=== PATIENT | female | born 1935 | race Caucasian/White ===

== ENCOUNTER → 2018-07-10 11:12 | Outpatient (CLI) | payer MEDICARE, SELFPAY ==
--- NOTE | 2018-07-10 11:08 | DI.REPORT_ITS ---
SYMPTOMS/DIAGNOSIS: PAIN RIGHT HAND: Three views were obtained. There is a fracture of the head of the fifth metacarpal with mild impaction of the fracture fragments. Mild volar and radial angulation of the distal fracture fragment noted. Moderate degenerative changes of the IP joints of the hand noted.
== END ==
PROVIDERS: Family Provider Family Medicine; PCP Family Medicine; Visit Provider Orthopaedic Surgery
DX: M79.641 Pain in right hand (principal); S62.336A Displaced fracture of neck of fifth metacarpal bone, right hand, initial encounter for closed fracture; M19.041 Primary osteoarthritis, right hand; W01.0XXA Fall on same level from slipping, tripping and stumbling without subsequent striking against object, initial encounter
CPT/HCPCS: 73130; 99214

== ENCOUNTER 2018-10-15 08:29 | Emergency (ER) | payer MEDICARE, SELFPAY ==
[2018-10-15 08:35] VITALS: BP 141/67; PULSE 91; RESP 18; TEMP 36.9; O2SAT 91
--- NOTE | 2018-10-15 08:52 | DI.RAD_ITS ---
SYMPTOMS/DIAGNOSIS: COUGH, WHEEZING, ? PNEUMONIA PA AND LATERAL CHEST: The heart is not enlarged. There may be a hiatal hernia. There are patchy areas of increased radiodensities in the lung bases, probably predominantly on the left. The findings are suspicious for pneumonia. No pleural effusions seen. CONCLUSION: Findings suspicious for basilar pneumonia, probably left lower lobe.
[2018-10-15 09:03] VITALS: RESP 7
[2018-10-15] MEDS: predniSONE 20 MG TAB 60 MG PO (09:03)
[2018-10-15] MEDS: Albuterol/Ipratropium 3 ML UPD VIAL UPD (09:03)
--- NOTE | 2018-10-15 09:04 | ED.GENADUL_ITS ---
Discharge Plan Disposition Patient Disposition: HOME Condition: Stable Discharge Details Chief Complaint: RespSymp Clinical Impression: Community acquired pneumonia Primary Care Provider: Smita Prajapati ED Provider: Katerin Levin Home Meds and New Rx's Prescriptions: New doxycycline hyclate 100 mg capsule 100 mg PO BID 7 Days Qty: 14 RF: 0 prednisone 50 mg tablet 50 mg PO DAILY 5 Days Qty: 5 RF: 0 albuterol sulfate [Ventolin HFA] 90 mcg/actuation Hfa Aerosol Inhaler 2 puff Inhalation DISPENSE Qty: 1 RF: 0 Continue omeprazole 20 MG capsule,delayed release(DR/EC) 20 mg PO DAILY RF: 0 Discharge Instructions Instructions: Community Acquired Pneumonia (ED) Additional Instructions: Take the antibiotics and steroids until finished. Use the albuterol inhaler as needed and directed for wheezing or shortness of breath. Call your primary care doctor today to schedule follow-up appointment for 2 days. Return immediately to the emergency department any worsening or new concerning symptoms. Discharge Data Discharge Physician: Katerin Levin Medical Decision Making 82-year-old female with no past medical history with cough and chest congestion for 1 week. Positive sick contact with recently diagnosed with pneumonia. O2 sat 91% on room air. Heart rate 91. Afebrile. Normal respiratory rate and blood pressure. Patient appears nontoxic, in speaking full sentences, no respiratory distress. She has scattered wheezing and rhonchi throughout. Differential diagnosis includes acute bronchitis, pneumonia. Doubt ACS as she has no complaints of chest pain or shortness of breath. Due to patient's age, will check an EKG and a chest x-ray. Patient stated initially she had been eating and drinking well, but states she ate less yesterday and would like lab work to rule out dehydration. There are no physical exam signs of dehydration, give DuoNeb and p.o. prednisone. EKG notes a rate of 81, sinus, no acute ST elevation or depression, QTc 436, QRS 98. 1005 --chest x-ray notes pneumonia bilateral bases. Patient feels better after DuoNeb. Repeat oxygen saturation 89%, improved after coughing to 94%. Patient states she feels good to go home. She denies any recent antibiotics or recent hospital admission. Will give another neb treatment to see if this improves further chest congestion and a dose of doxycycline here. 1040 --patient feels better after second neb treatment and is requesting to go home. Oxygen saturation 92% on room air. Prescription for prednisone and doxycycline given as well as albuterol inhaler to go. Patient was instructed to call her primary care doctor for reevaluation in the next 2 days and to return here immediately if worse. HPI General Mode of arrival: ambulatory . Date/Time Provider Initiated Documentation: 10/15/18 08:45 . Limitations to Documentation: no limitations . Information obtained by: patient . HPI Narrative: Patient is an 82-year-old female with no past medical history who presents with cough and chest congestion for the past week. Patient states she would not have come here if not for her and son making her come to be evaluated. She states she has had occasional sputum but mostly the cough has been dry. She denies fever, chest pain, shortness of breath, sore throat, leg pain or swelling, recent travel or recent surgery. She states she has not taken any medication for this. Here in the ED and diagnosed with pneumonia and sent home with antibiotics. She states she has been eating and drinking. Past medical history: None Surgical history: Appendectomy, tubal ligation, tonsillectomy Social history: Denies tobacco, alcohol or drugs Medications: Prilosec Allergies: Penicillin PCP: Dr. Prajapati Related Data Home Medications Medication Instructions Recorded Confirmed albuterol sulfate [Ventolin HFA] 2 puff INHALATION DISPENSE #1 g 10/15/18 doxycycline hyclate 100 mg PO BID 7 Days #14 cap 10/15/18 omeprazole 20 mg PO DAILY 10/15/18 10/15/18 prednisone 50 mg PO DAILY 5 Days #5 tab 10/15/18 Previous Rx's Medication Instructions Recorded albuterol sulfate [Ventolin HFA] 2 puff INHALATION DISPENSE #1 g 10/15/18 doxycycline hyclate 100 mg PO BID 7 Days #14 cap 10/15/18 prednisone 50 mg PO DAILY 5 Days #5 tab 10/15/18 Allergies Allergy/AdvReac Type Severity Reaction Status Date / Time Penicillins Allergy Severe Anaphylaxsi Unverified 10/15/18 08:38 s General Stated Complaint: RespSymp SHAHIDA: 3 Review of Systems Review of Systems All systems reviewed & are unremarkable except as noted in HPI and below Constitutional Reports as per HPI, Denies chills and Denies fever(s) Eyes Denies blurry vision ENT Denies dizziness, Denies sore throat and Denies throat swelling Cardiovascular Denies chest pain and Denies dyspnea Respiratory Reports chest congestion, Reports cough and Denies dyspnea Gastrointestinal Denies abdominal pain, Denies diarrhea and Denies vomiting Genitourinary Denies hematuria and Denies dysuria Musculoskeletal Denies back pain and Denies numbness Integumentary/Breasts Denies lesions and Denies rash Neurologic Denies dizziness and Denies numbness Allergic/Immunologic Denies throat swelling [facility] Family History Mother Diabetes Essential hypertension Father Diabetes CHF (congestive heart failure) Sister Essential hypertension Heart disease Hyperlipidemia Neoplasm Macular degeneration Brother Diabetes Essential hypertension Heart disease Hyperlipidemia Neoplasm Macular degeneration Brother Neoplasm Macular degeneration Brother Diabetes Heart disease Hyperlipidemia Macular degeneration Brother Diabetes Heart disease Cerebrovascular accident Macular degeneration Brother Macular degeneration Grandfather No problems noted. Grandfather No problems noted. Grandmother Diabetes Heart disease Grandmother Heart disease Son No problems noted. Social History Smoking/Tobacco Use Status: Never Surgical History Appendectomy (~1952) Biopsy of breast (~2002) Tonsillectomy (~5) Exam Const General: cooperative and healthy appearing Orientation: alert and awake [facility] Head: normal to inspection Ears: hearing grossly normal bilaterally, external ears normal and TM abnormal dull bilaterally; not bulging, not with effusion and not erythematous General nose exam: external nose normal Face and sinus: normal facial exam Mouth: oral mucosae normal Teeth and gingiva: dentition normal Throat: posterior oropharynx normal Eyes General: appearance normal, both eyes and all related structures Eyelids: eyelids normal EOM: EOM intact bilaterally Neck Neck: normal visual inspection Lymphatic: no lymphadenopathy noted Chest Chest: normal inspection of the chest Resp Effort & Inspection: normal respiratory effort and able to speak in complete sentences Auscultation: rhonchi upper bilaterally and lower bilaterally and wheezes scattered wheezes Cardio Rate: regular rate Rhythm: regular rhythm GI Inspection: normal to inspection Palpation: soft, not firm, no guarding, no hepatosplenomegaly, no masses and nontender Auscultation: normal bowel sounds Skin General skin exam: no rashes or lesions noted Neuro General: alert and awake Cognition: normal cognition Speech: speech normal Gait: normal gait Motor: muscle tone normal throughout Sensory Exam: no sensory deficits noted Extrem General: normal to inspection, full ROM and no edema Psych Appearance: grossly normal Mental Status: mental status grossly normal Speech and Movement: speech and movement normal Affect: normal affect Thought Process: normal Course Vital Signs Temperature 98.4 F 10/15/18 08:35 Pulse 91 H 10/15/18 08:35 Respiratory Rate 18 10/15/18 08:35 Blood Pressure 141/67 H 10/15/18 08:35 Pulse Oximetry 91 L 10/15/18 08:35 Temperature 98.4 F 10/15/18 08:35 Temperature Source Skin 10/15/18 08:35 Pulse 91 H 10/15/18 08:35 Respiratory Rate 18 10/15/18 08:35 Respiratory Effort Accessory Muscle Use 10/15/18 08:44 Respiratory Depth Normal 10/15/18 08:44 Blood Pressure 141/67 H 10/15/18 08:35 Blood Pressure Position Sitting 10/15/18 08:35 Pulse Oximetry 91 L 10/15/18 08:35 Oxygen Delivery Method Room Air 10/15/18 08:35 Oxygen Flow Rate 0 10/15/18 08:35 Pain Level 0 10/15/18 08:35
[2018-10-15 09:26] LABS: Abs Immature Grans 0.03 k/cumm (0.0-0.09); Absolute Basophil Count 0.03 k/cumm (0.0-0.2); Absolute Monocyte Count 1.02 k/cumm (0.11-0.7); Basophils % 0.2; Eosinophils % 0.1; HCT 42.1 % (36.0-46.0); Immature Grans % 0.2; Mean Corp. HGB Concentration 33.3 g/dL (32.0-36.0); Mean Corpuscular Hemoglobin 28.9 pg (27.0-33.0); Mean Corpuscular Volume 86.8 fL (80-95); Mean Platelet Volume 10.6 fL (8.0-11.0); Monocytes % 7.2; Neutrophils % 75.3; Platelet Count 216 x1000/uL (130-400); RBC 4.85 m/cumm (4.00-5.20); RBC Distribution Width 14.6 % (11.7-14.6); White Blood Cell Count 14.21 k/cumm (4.4-10.8)
[2018-10-15 09:27] LABS: Absolute Eosinophil Count 0.01 k/cumm (0.0-0.7); Absolute Lymphocyte Count 2.42 k/cumm (1.2-3.4)
[2018-10-15 09:56] LABS: ALT 21 U/L (12-78); AST 13 U/L (15-37); Albumin 3.4 g/dL (3.4-5.0); Alkaline Phosphatase 64 U/L (46-116); Anion Gap 9.5 mmol/L (3-11); BUN 15 mg/dL (7-18); Bilirubin, Total 1.2 mg/dL (0.2-1.0); CO2 26.5 mmol/L (21.0-32.0); Calcium 8.8 mg/dL (8.5-10.1); Chloride 100 mmol/L (98-107); Estimated GFR 53.35 (mL/min/1.73m2); Glucose 140 mg/dL (70-100); Magnesium 2.1 mg/dL (1.8-2.4); Potassium 3.8 mmol/L (3.5-5.1); Sodium 136 mmol/L (136-145); Total Protein 7.8 g/dL (6.4-8.2)
[2018-10-15 09:58] LABS: Troponin I < 0.02 ng/mL (0.00-0.06)
[2018-10-15 10:15] VITALS: PULSE 92; RESP 20; O2SAT 90
[2018-10-15] MEDS: Doxycycline Hyclate 100 MG CAP PO (10:15)
[2018-10-15] MEDS: Albuterol 2.5 MG/3 ML INH SOLN VIAL UPD (10:15)
[2018-10-15 10:53] VITALS: BP 133/48; PULSE 102; RESP 20; TEMP 36.6; O2SAT 91
[2018-10-15 11:05] VITALS: BP 133/48; PULSE 94; RESP 20; TEMP 36.6; O2SAT 91
== END 2018-10-15 11:05 | disposition home or self-care (01) ==
PROVIDERS: Emergency Provider Physician Assistant; PCP Family Medicine
DX: J18.9 Pneumonia, unspecified organism (principal)
CPT/HCPCS: 36415; 80053; 93005; 94640; 99285; 71046; 83735; 84484; 85025; 93010; J7512; J7613; J7620

== ENCOUNTER 2018-12-17 10:26 | Outpatient (CLI) | payer MEDICARE, SELFPAY ==
--- NOTE | 2018-12-17 14:45 | DI.RAD_ITS ---
SYMPTOMS/DIAGNOSIS: COUGH PA AND LATERAL CHEST: The lungs are free of infiltrates. There is no pleural effusion. There is a moderate-sized retrocardiac hiatus hernia. The heart is not enlarged. The hilar structures, mediastinum and tracheal air column are intact. SUMMARY: No evidence of acute cardiopulmonary disease.
[2018-12-17 15:40] LABS: Abs Immature Grans 0.02 k/cumm (0.0-0.09); Absolute Basophil Count 0.09 k/cumm (0.0-0.2); Absolute Eosinophil Count 0.35 k/cumm (0.0-0.7); Absolute Lymphocyte Count 2.89 k/cumm (1.2-3.4); Absolute Monocyte Count 0.81 k/cumm (0.11-0.7); Absolute Neutrophil Count 5.01 k/cumm (1.2-6.7); Eosinophils % 3.8; HCT 44.5 % (36.0-46.0); Immature Grans % 0.2; Lymphocytes % 31.5; Mean Corp. HGB Concentration 31.5 g/dL (32.0-36.0); Mean Corpuscular Hemoglobin 27.9 pg (27.0-33.0); Mean Corpuscular Volume 88.6 fL (80-95); Mean Platelet Volume 10.7 fL (8.0-11.0); Monocytes % 8.8; Neutrophils % 54.7; Platelet Count 282 x1000/uL (130-400); RBC 5.02 m/cumm (4.00-5.20); RBC Distribution Width 15.4 % (11.7-14.6); White Blood Cell Count 9.17 k/cumm (4.4-10.8)
[2018-12-17 16:47] LABS: ALT 22 U/L (12-78); AST 16 U/L (15-37); Albumin 3.5 g/dL (3.4-5.0); Alkaline Phosphatase 65 U/L (46-116); Anion Gap 6.9 mmol/L (3-11); BUN 11 mg/dL (7-18); Bilirubin, Total 0.4 mg/dL (0.2-1.0); CO2 30.1 mmol/L (21.0-32.0); CREATININE 0.86 mg/dL (0.55-1.02); Calcium 8.9 mg/dL (8.5-10.1); Chloride 101 mmol/L (98-107); Glucose 82 mg/dL (70-100); Potassium 4.1 mmol/L (3.5-5.1); Sodium 138 mmol/L (136-145); Total Protein 8.6 g/dL (6.4-8.2)
== END 2018-12-17 10:46 ==
PROVIDERS: PCP Family Medicine; Visit Provider Internal Medicine
DX: R05 Cough (principal); J18.9 Pneumonia, unspecified organism; Z01.818 Encounter for other preprocedural examination
CPT/HCPCS: 36415; 80053; 71046; 85025

== ENCOUNTER 2019-01-02 07:17 | Day surgery (SDC) | payer MEDICARE, SELFPAY ==
--- NOTE | 2019-01-01 12:56 | POEE_ITS ---
History of Present Illness Chief Complaint: Progressive decreased vision, left eye Narrative: The patient is an 82-year-old lady with history of aggressive decreased vision in both eyes at both distance and near. She feels it has become increasingly worse over the past year. On examination she was noted to have moderately advanced bilateral nuclear cataracts with vision of 20/200 OD, 20/60 OS. The option of cataract surgery was offered to the patient and she wished to proceed with cataract surgery of the left eye, followed by the right eye.. Of note, she also has history of epiretinal membrane of the right eye as well as nonexudative macular degeneration, right eye more than left she understands that postoperative visual acuity will be limited by the pre-existing retinopathy. NOTE: The Chief Complaint, HPI, Past Medical History, Past Surgical History, Family History, Social History, Medications, and complete Ophthalmic Exam with detailed Assessment and Plan have already been documented in the patient's outpatient ophthalmic record and are not covered again in detail here. [facility] Medical History Nuclear sclerotic cataract of left eye (Acute) Surgical History Appendectomy (~1952) Biopsy of breast (~2002) Tonsillectomy (~1945) Social History Smoking and Tabacco status: Never Meds Home Medications Medication Instructions Recorded Confirmed Type omeprazole 20 mg PO DAILY 10/15/18 12/31/18 History Allergies Allergy/AdvReac Type Severity Reaction Status Date / Time Penicillins Allergy Severe Anaphylaxsi Unverified 12/17/18 13:37 s Exam OCULAR EXAM:: Most recent ocular examination reveals visual acuity of 20/200 OD, 20/60 OS. Best corrected vision is 2080 OD, 20/50 OS. Intraocular pressure is 18 OD, 16 OS. Extraocular motility is normal.. Pupils equal, round, and reactive without afferent pupillary defect slit-lamp examination reveals dilating to 6 mm OU. 3+ brunescent nuclear cataracts OU. Dilated funduscopic examination shows disc cupping of 0.2 OD 0.1 OS. There is an epiretinal membrane in the right eye with some horizontal history a in the nasal macula. There is one drusen in the macula. Central pigment clumping with a hypopigmented halo is present centrally. In the left eye there is a small central area of hyperpigmentation. Peripheral retina and vitreous is normal OU. BRIGHTNESS ACUITY TESTING (BAT):: Brightness acuity testing of the left eye off is 20/60. Low is 20/60. Medium is 20/60. High is 20/200. Assessment and Plan (1) Nuclear sclerotic cataract of left eye: Current visit: No Status: Acute Assessment: Visually significant cataract, left eye. Plan: Cataract extraction with intraocular lens implantation, left eye Note: NOTE:: The details of the planned surgery, including the risks, indications,limitations,expectations,outcome and possible complications were explained to the patient. The patient understands the complications including, but not limited to: infection, hemorrhage, posterior dislocation of the lens or nuclear fragments which may require the intervention of a vitreoretinal surgeon, possible loss of the eye, or from anesthetic complications. The patient has been made aware of the option of not having surgery, that vision following surgery may not be equal to that prior to surgery, and that the planned surgery may not achieve the intended results. Following this discussion, which the patient appeared to understand, the patient wishes to proceed with cataract surgery with lens implantation of the affected eye to improve and maximize vision.
[2019-01-02 07:35] VITALS: BP 137/71; PULSE 85; RESP 16; TEMP 36.1; O2SAT 93
[2019-01-02] MEDS: Tetracaine 0.5% 4 ML BTL OS ×2 (07:44→09:10)
[2019-01-02] MEDS: Tropicam./Phenyleph. (1/2.5%) 5 ML BTL OS ×3 (07:47→07:58)
--- NOTE | 2019-01-02 09:06 | W.PM.DSUDISC ---
Discharge Plan Discharge Details Attending Provider: Armando Adler Primary Care Provider: Smita Prajapati Home Meds and New Rx's Prescriptions: No Action omeprazole 20 MG capsule,delayed release(DR/EC) 20 mg PO DAILY RF: 0 Discharge Instructions Stand Alone Forms: Post-op Topical Cataract, Minh Smallwood (DSU) DS: Diagnosis Discharge Diagnosis (1) Status post cataract extraction and insertion of intraocular lens of left eye: Status: Chronic
--- NOTE | 2019-01-02 09:08 | ROE_ITS ---
Date of service: 01/02/19 Time of Service: 09:45 Operative Note PRE-OP DIAGNOSIS: Cataract, left eye POST-OP DIAGNOSIS: same PROCEDURE: Cataract extraction using phacoemulsification with intraocular lens implant, left eye SURGEON: Armando Adler ANESTHESIA: MAC and local (sub-tenon's anesthetic infiltration) PATHOLOGY: none sent COMPLICATIONS: None Patient was transported to: same day Patient's condition: stable Implants: [employer] / [employer] Tecnis ZCB00 Indications: Progressive decreased vision due to cataract, left eye Procedure Description: CATARACT SURGERY OPERATIVE REPORT PREOPERATIVE DIAGNOSIS: Nuclear cataract, left eye POSTOPERATIVE DIAGNOSIS: Same OPERATION: Cataract extraction using phacoemulsification with posterior chamber intraocular lens implant, left eye. IOL: IOL Measuring Machine Tender/Model: [employer] / EBEN Tecnis ZCB00 IOL Power: + 20.0 diopters IOL Serial Number: [id number] Optic Diameter: 6.0mm Haptic/Overall Diameter: 13.0mm PHACO INFO: Andres [employer]urion Vision System with OZil and Active Fluidics Cumulative Dispersed Energy (CDE): 12.70 seconds SURGEON: Armando Adler MD, GENIA ANESTHESIA: Monitored Anesthesia Care (MAC), with local sub-tenon's anesthetic infiltration COMPLICATIONS: None SPECIMENS: None INDICATIONS FOR PROCEDURE: The patient is an 83-year-old lady with history of diminished visual acuity in both eyes secondary to the development of bilateral nuclear cataracts. She is significantly symptomatic that she desires cataract surgery and attempt to improve and maximize her vision. PROCEDURE: The correct surgical eye was identified and marked as the left eye and the pupil was dilated in the preoperative area using mydriatics and cycloplegics. The dilated pupil size was 6.5 mm. Oral sedation was administered in the form of an Imprimis MKO Melt (midazolam 3mg/ketamine 25mg/ondansetron 2mg). The patient was brought to the operating room where cardiopulmonary monitoring was instituted and surgical time-out was performed, confirming the correct operative eye and IOL power. Topical anesthesia was administered and ophthalmic povidone-iodine 5% was instilled into the conjunctival fornices. Lidocaine gel was applied to the cornea and the jarrett-ocular area was prepped with Betadine 10% solution and draped in the usual sterile fashion for intraocular surgery, including an aperture drape. A Tegaderm transparent film dressing was cut in half and used to cover the lashes and lid margins. Care was taken to sequester the lashes and lid margins under the Tegaderm dressing. A lid speculum was placed between the lids of the operative eye and the Сергей-Mary operating microscope was maneuvered into position. Smooth scissors were then used to make a conjunctival buttonhole approximately 6mm posterior to the limbus in the inferonasal quadrant. Blunt dissection was carried out to expose bare sclera, and a blunt-tipped sub-tenon?s anesthesia cannula was introduced and passed posteriorly along the globe where non- preserved plain lidocaine was injected into posterior sub-Tenon?s space. A side port knife was used to make a paracentesis port superior/superiortemporal, and the anterior chamber was filled with Healon GV. A 2.4mm keratome knife was used to create a half-thickness groove at the limbus and then to construct a three- plane near-clear corneal tunnel extending 2.0mm into clear cornea in the temporal position. . A flap was raised on the anterior capsule and capsulorhexis forceps were used to complete a continuous curvilinear capsulorhexis of 4.8 mm. Balanced salt solution was then used to perform cortical cleaving hydrodissection and nuclear hydrodelineation until the lens could be freely rotated within the capsular bag. The lens nucleus was then disassembled and removed within the capsular bag and iris plane using phacoemulsification. Residual cortical material was removed using the 45-degree angled silicone I/A tip with 0.3mm port. The posterior capsule was carefully polished to remove as much residual lens epithelial cells as safely possible. The capsular bag was then inflated and the anterior chamber deepened with viscoelastic. The lens implant described above was inserted into the capsular bag using the EBEN Dongola Injector. A Kuglen hook was used to dial the IOL into position. Residual viscoelastic was then removed first from posterior to the IOL, then from the anterior chamber using the I/A handpiece. The lens implant was noted to center nicely within the capsular bag. The incisions were stromally hydrated, and the anterior chamber was reformed using BSS. Then 0.4cc of moxifloxacin 1.5mg/ml were injected into the capsular bag and anterior chamber. The incisions were checked with a Weck spear and found to be secure. Several drops of ophthalmic povidone-iodine 5% were then applied to the eye followed by two drops of Imprimis combination moxifloxacin/dexamethasone solution. The drapes were removed and a clear plastic protective eye shield was placed over the eye. The patient was then returned to [facility] Day Surgery in stable condition.
[2019-01-02] MEDS: Povidone-Iodine Ophth 30 ML BTL (09:10)
[2019-01-02] MEDS: Lidocaine 2% Jelly 6 ML SYR (09:10)
[2019-01-02] MEDS: Lidocaine 1% Pres-Free 5 ML VIAL (09:15)
[2019-01-02] MEDS: Balanced Salt Soln.-PLUS 500 ML BAG (09:15)
[2019-01-02 10:09] VITALS: BP 120/52; PULSE 69; RESP 16; TEMP 35.8; O2SAT 96
== END 2019-01-02 10:40 | disposition home or self-care (01) ==
LOC: SUR 07:17
PROVIDERS: PCP Family Medicine; Visit Provider Ophthalmology
PROC: (CPT 66984; principal; 2019-01-02 09:30)
DX: H25.12 Age-related nuclear cataract, left eye (principal); K21.9 Gastro-esophageal reflux disease without esophagitis
CPT/HCPCS: 66984; V2632

== ENCOUNTER 2019-01-05 16:00 | Outpatient (CLI) | payer MEDICARE, SELFPAY ==
--- NOTE | 2019-01-05 16:00 | DI.RAD_ITS ---
SYMPTOM/DIAGNOSIS: RLL RALES, PNEUMONIA, J18.9 CHEST X-RAY: Frontal and lateral views. Comparison 12/17/18 Heart size and pulmonary vasculature are within normal limits. No focal infiltrates, effusions or pneumothoraces are identified. There is again seen a retro-cardiac soft tissue density consistent with hiatal hernia. The bones are intact. IMPRESSION: No acute pulmonary process.
== END 2019-01-05 16:20 ==
PROVIDERS: PCP Family Medicine; Visit Provider Family Medicine
DX: R09.89 Other specified symptoms and signs involving the circulatory and respiratory systems (principal); J18.9 Pneumonia, unspecified organism; K44.9 Diaphragmatic hernia without obstruction or gangrene
CPT/HCPCS: 71046

== ENCOUNTER 2019-01-16 08:20 | Day surgery (SDC) | payer MEDICARE, SELFPAY ==
--- NOTE | 2019-01-15 07:31 | W.PIPPEYE ---
History of Present Illness Chief Complaint: Progressive decreased vision, right eye Narrative: The patient is an 82-year-old lady with history of macular degeneration and epiretinal membrane of the right eye. She presented with complaints of progressive decreased vision in both eyes at both distance and near. She was noted to have significant bilateral nuclear cataracts. The option of cataract surgery was offered to the patient and she wished to proceed. She is Ardie undergone cataract surgery in her left eye on 01/02/2019. She now presents for cataract surgery in the right eye. NOTE: The Chief Complaint, HPI, Past Medical History, Past Surgical History, Family History, Social History, Medications, and complete Ophthalmic Exam with detailed Assessment and Plan have already been documented in the patient's outpatient ophthalmic record and are not covered again in detail here. PFSH Medical History Nuclear sclerotic cataract of left eye (Acute) Nuclear sclerotic cataract of left eye (Resolved) Surgical History Status post cataract extraction and insertion of intraocular lens of left eye (Chronic 01/02/19) Appendectomy (~1952) Biopsy of breast (~2002) Tonsillectomy (~1945) Social History Smoking and Tabacco status: Never Meds Home Medications Medication Instructions Recorded Confirmed Type omeprazole 20 mg PO DAILY 10/15/18 01/09/19 History albuterol sulfate HFA 90 1 - 2 puff IH Q4H PRN #8.5 gm 01/05/19 01/09/19 Rx mcg/actuation aerosol inhaler benzonatate 200 mg capsule 200 mg PO TID PRN #30 cap 01/05/19 01/09/19 Rx inhalational spacing device #1 each 01/05/19 01/09/19 Rx levofloxacin 500 mg tablet 500 mg PO DAILY #7 tab 01/05/19 01/09/19 Rx Allergies Allergy/AdvReac Type Severity Reaction Status Date / Time Penicillins Allergy Severe Anaphylaxsi Unverified 01/09/19 08:31 s Exam OCULAR EXAM:: Most recent ocular examination is significant for corrected visual acuity of 20/80 OD, 20/50 OS. Intraocular pressure is 18 OD 15 OS. Pupils equal, round, and reactive without afferent pupillary defect extraocular motility is normal. Slit-lamp examination shows pupils dilating to 6 mm OU. 3+ brunescent nuclear cataract OD. Well-positioned PCIOL OS with clear posterior capsule. Dilated funduscopic examination shows disc cupping of 0.2 OD 0.1 OS with normal vessels. There is an epiretinal membrane in the right macula with central pigment clumping with a hypopigmented halo. There are some macular pigmentary changes in the left eye. Peripheral retina and vitreous is normal. BRIGHTNESS ACUITY TESTING (BAT):: Brightness acuity testing of the right eye off is 20/200. Low is 20/200. Medium is 20/200. High is 20/400. Assessment and Plan (1) Nuclear sclerotic cataract of left eye: Current visit: No Status: Acute (2) Nuclear sclerotic cataract of right eye: Current visit: No Status: Acute Assessment: Visually significant cataract, right eye, resolved Plan: cataract extraction was performed 01/02/19 (this diagnosis DOES NOT delete from problem list in this document) Note: NOTE:: The details of the planned surgery, including the risks, indications,limitations,expectations,outcome and possible complications were explained to the patient. The patient understands the complications including, but not limited to: infection, hemorrhage, posterior dislocation of the lens or nuclear fragments which may require the intervention of a vitreoretinal surgeon, possible loss of the eye, or from anesthetic complications. The patient has been made aware of the option of not having surgery, that vision following surgery may not be equal to that prior to surgery, and that the planned surgery may not achieve the intended results. Following this discussion, which the patient appeared to understand, the patient wishes to proceed with cataract surgery with lens implantation of the affected eye to improve and maximize vision.
[2019-01-16 08:29] VITALS: BP 148/79; PULSE 80; RESP 16; TEMP 36.3; O2SAT 95
[2019-01-16] MEDS: Tetracaine 0.5% 4 ML BTL OD ×4 (08:46→10:21)
[2019-01-16] MEDS: Tropicam./Phenyleph. (1/2.5%) 5 ML BTL OD ×3 (08:46→08:58)
[2019-01-16] MEDS: Lidocaine 2% Jelly 6 ML SYR (10:22)
[2019-01-16] MEDS: Povidone-Iodine Ophth 30 ML BTL (10:22)
[2019-01-16] MEDS: Lidocaine 1% Pres-Free 5 ML VIAL (10:27)
[2019-01-16] MEDS: Balanced Salt Soln.-PLUS 500 ML BAG (10:30)
[2019-01-16] MEDS: Duovisc Viscoelastic System EACH 1 EACH (10:38)
--- NOTE | 2019-01-16 10:48 | W.PM.DSUDISC ---
Discharge Plan Discharge Details Attending Provider: Armando Adler Primary Care Provider: Smita Prajapati Home Meds and New Rx's Prescriptions: No Action benzonatate 200 mg capsule 200 mg PO TID PRN (Reason: cough) Qty: 30 RF: 0 levofloxacin [Levaquin] 500 mg tablet 500 mg PO DAILY Qty: 7 RF: 0 Ventolin HFA 90 mcg/actuation HFA aerosol inhaler 1 - 2 puff IH Q4H PRN (Reason: shortness of breath or wheezing) Qty: 8.5 RF: 0 Aerochamber MV spacer .ROUTE .MEDSUPPLY Qty: 1 RF: 0 omeprazole 20 MG capsule,delayed release(DR/EC) 20 mg PO DAILY RF: 0 Discharge Instructions Stand Alone Forms: Post-op Topical Cataract, Press Ganey (DSU) DS: Diagnosis Discharge Diagnosis (1) Status post cataract extraction and insertion of intraocular lens of right eye: Status: Chronic
--- NOTE | 2019-01-16 10:51 | ROE_ITS ---
Date of service: 01/16/19 Time of Service: 10:49 Operative Note PRE-OP DIAGNOSIS: Cataract, right eye PROCEDURE: Cataract extraction using phacoemulsification with intraocular lens implant, right eye SURGEON: Armando Adler ANESTHESIA: MAC and local (sub-tenon's anesthetic infiltration) ESTIMATED BLOOD LOSS: 0 PATHOLOGY: none sent COMPLICATIONS: None Patient was transported to: same day Patient's condition: stable Implants: [employer] / [employer] Tecnis ZCB00 intraocular lens Indications: Progressive decreased vision due to cataract, right eye Procedure Description: CATARACT SURGERY OPERATIVE REPORT PREOPERATIVE DIAGNOSIS: Nuclear cataract, right eye POSTOPERATIVE DIAGNOSIS: Same OPERATION: Cataract extraction using phacoemulsification with posterior chamber intraocular lens implant, right eye. IOL: IOL Living Coach/Model: [employer] / EBEN Tecnis ZCB00 IOL Power: + 20.50 diopters IOL Serial Number: [id number] Optic Diameter: 6.0mm Haptic/Overall Diameter: 13.0mm PHACO INFO: Andres Showpadurion Vision System with OZil and Active [employer]uidics Cumulative Dispersed Energy (CDE): 7.97 seconds SURGEON: Armando Adler MD, GENIA ANESTHESIA: Monitored Anesthesia Care (MAC), with local sub-tenon's anesthetic infiltration COMPLICATIONS: None SPECIMENS: None INDICATIONS FOR PROCEDURE: The patient is an 83-year-old lady with history of macular degeneration who has developed significant bilateral dense nuclear cataracts. She is Ardie undergone cataract surgery in her left eye and is doing well postoperatively. She now presents for cataract surgery in the right eye. PROCEDURE: The correct surgical eye was identified and marked as the right eye and the pupil was dilated in the preoperative area using mydriatics and cycloplegics. The dilated pupil size was 7.0 mm. Oral sedation was administered in the form of an Imprimis MKO Melt (midazolam 3mg/ketamine 25mg/ondansetron 2mg). The patient was brought to the operating room where cardiopulmonary monitoring was instituted and surgical time-out was performed, confirming the correct operative eye and IOL power. Topical anesthesia was administered and ophthalmic povidone-iodine 5% was instilled into the conjunctival fornices. Lidocaine gel was applied to the cornea and the jarrett-ocular area was prepped with Betadine 10% solution and draped in the usual sterile fashion for intraocular surgery, including an aperture drape. A Tegaderm transparent film dressing was cut in half and used to cover the lashes and lid margins. Care was taken to sequester the lashes and lid margins under the Tegaderm dressing. A lid speculum was placed between the lids of the operative eye and the Сергей-Mary operating microscope was maneuvered into position. Smooth scissors were then used to make a conjunctival buttonhole approximately 6mm posterior to the limbus in the inferonasal quadrant. Blunt dissection was carried out to expose bare sclera, and a blunt-tipped sub-tenon?s anesthesia cannula was introduced and passed posteriorly along the globe where non- preserved plain lidocaine was injected into posterior sub-Tenon?s space. A sideport knife was used to make a paracentesis port inferiortemporally, and the anterior chamber was filled with Viscoat. A 2.4mm keratome knife was used to create a half-thickness groove at the limbus and then to construct a three-plane near-clear corneal tunnel extending 2.0mm into clear cornea in the superiortemporal position. . A flap was raised on the anterior capsule and capsulorhexis forceps were used to complete a continuous curvilinear capsulorhexis of 5.5 mm. Balanced salt solution was then used to perform cortical cleaving hydrodissection and nuclear hydrodelineation until the lens could be freely rotated within the capsular bag. The lens nucleus was then disassembled and removed within the capsular bag and iris plane using phacoemulsification. Re sidual cortical material was removed using the I/A handpiece. The posterior capsule was carefully polished to remove as much residual lens epithelial cells as safely possible. The capsular bag was then inflated and the anterior chamber deepened with Provisc. The lens implant described above was inserted into the capsular bag using the EBEN Hardy Injector. A Kuglen hook was used to dial the IOL into position. Residual viscoelastic was then removed first from posterior to the IOL, then from the anterior chamber using the I/A handpiece. The lens implant was noted to center nicely within the capsular bag. The incisions were stromally hydrated, and the anterior chamber was reformed using BSS. Then 0.4cc of moxifloxacin 1.5mg/ml were injected into the capsular bag and anterior chamber. The incisions were checked with a Weck spear and found to be secure. Several drops of ophthalmic povidone-iodine 5% were then applied to the eye followed by two drops of Imprimis combination moxifloxacin/dexamethasone solution. The drapes were removed and a clear plastic protective eye shield was placed over the eye. The patient was then returned to [facility] in stable condition.
[2019-01-16 11:10] VITALS: BP 105/70; PULSE 82; RESP 16; TEMP 35.7; O2SAT 96
== END 2019-01-16 11:15 | disposition home or self-care (01) ==
LOC: SUR 08:20
PROVIDERS: PCP Family Medicine; Visit Provider Ophthalmology
PROC: (CPT 66984; principal; 2019-01-16 10:30)
DX: H25.11 Age-related nuclear cataract, right eye (principal); Z98.42 Cataract extraction status, left eye; Z96.1 Presence of intraocular lens; H35.30 Unspecified macular degeneration
CPT/HCPCS: 66984; V2632

== ENCOUNTER 2020-10-22 15:13 | Emergency (ER) | payer MEDICARE, SELFPAY ==
[2020-10-22] VITALS (48 sets, daily range): BP systolic 115–174; BP diastolic 46–77; PULSE 58–70; RESP 13–24; TEMP 36.3; O2SAT 83–100
--- NOTE | 2020-10-22 15:00 | RT.EKG_ITS ---
APPROVED REPORT Exam: Resting ECG Patient Location: E HR:62 bpm ECG Measurements Heart Rate 62 AXIS FL 169 P 4 QRSd 88 QRS -18 QT 419 T 33 QTc 425 Conclusion Sinus rhythm...normal P axis, V-rate 60- 99. 1mm ST depression in lateral leads I, aVL, V5-6. No STEMI. I have reviewed and interpreted ECG and agree with software generated interpretation.
--- NOTE | 2020-10-22 15:15 | DI.RAD_ITS ---
EXAM: XR CHEST 2V PA LATERAL CLINICAL HISTORY: CP TECHNIQUE: 2D digital imaging was performed. COMPARISON: CR XR CHEST 2V PA LATERAL from 01/05/2019 FINDINGS: The heart is not enlarged. The lungs are clear and well expanded. No pleural effusion seen. Mediastin al contours appear intact except for a retrocardiac hiatus hernia. IMPRESSION: No evidence of acute process. RADIATION DOSE DELIVERED: Total DLP Total DLP
--- NOTE | 2020-10-22 15:27 | ED.GENADUL_ITS ---
Discharge Plan Disposition Patient Disposition: [facility] Condition: Serious Discharge Details Clinical Impression: Non-ST elevation MS (NSTEMI) Primary Care Provider: Smita Prajapati ED Provider: Marielena Lovelace Home Meds and New Rx's Prescriptions: No Action omeprazole 20 mg capsule,delayed release(DR/EC) 20 mg PO BID PRN (Reason: reflux) Qty: 180 RF: 4 Medical Decision Making <DAYAMI Duran - Last Filed: 10/22/20 16:56> Patient is a pleasant 84 year old female presenting today with c/c of chest tightness. She states that, it feels like their is a rope around my chest. States pain radiates into her bilateral shoulders, neck and back. Denies tearing CP. Denies weakness, SOB, lightheadedness. Has not noted any worsening s ymptoms but does state that she notices her pain is improved now. She reprots she took ASA prior to arrival. No change with eating. No pain like this historically. She denies any cardiac history. REports that her father, mother and sister all had MIs. On exam, she appears slightly uncomfortable and anxious. She has normal cardiac and respiratory exam. No bruit, no JVd, 2+ pulses in all extremities. Abdominal exam benign. Concern for ACS. Please see Dr. Marcus interpretation of ECG. Patient was noted to have 1mm ST depression in alteral leads, no evidence of STEMI. She has no respiratory complaints, is not tachycardic or hypoxic. Doubt PE. She denies change with food although does report hx of GERD. Could be esophageal source. CXR reviewed by radiologist: FINDINGS: Lungs: Unremarkable. No consolidation. Pleural space: Unremarkable. No pleural effusion. No pneumothorax. Heart/Mediastinum: Esophageal hiatal hernia. Vasculature: Aortic calcifications. 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 Other findings: Bilateral apically scarring. IMPRESSION: No acute findngs. Labs reviewed. No leukocytosis. Stable H&H. Normal CMP. Troponin <0.05. Discussed findings with the patient. She contniues to be asymptomatic. Plan for 3 hour troponin. As she was having pain radiating to her back, will also obtain CTA thorax. At the end of my shift, care transitioned to Dereck Lovelace NP with repeat troponin, CTA and disposition pending. <Marielena Lovelace - Last Filed: 10/22/20 20:51> 1638: Care assumed from provider (DAYAMI Duran) Discussed patient details and case and pending workup and disposition. Patient is hemodynamically stable, and alert and oriented. Alert and oriented pleasant 84-year-old female who came in for circumferential chest pain which began at midnight last night which radiates up into her chest and bilateral shoulders. Discussed preliminary results with patient, verbalized understanding. Pending CT thorax CTA to rule out aortic dissection. Patient is aware and agrees to plan. Also discussed second troponin at approximately 630 pm. 1931: Repeat troponin comes back elevated at 0.29, EKG is improved ST depression seen on lateral leads on previous EKG. EKG was reviewed by Katerin Levin MD ER attending, please see her official report. Discussed results with patient, will consult with [facility] cardiology for possible transfer for NSTEMI.Patient continues to be chest pain free. 1937: [facility] cardiology paged. Heparin bolus and drip ordered and 300mg of Plavix ordered. 1946: Discussed CODE STATUS with patient she reports that she is a DNR/DNI she does not wish to have CPR or breathing tube if her heart were to stop beating. I discussed if a cardiac catheterization or intervention was needed for possible heart attack which she want to go ahead with that route she said that she would be willing to have the procedure done. 2016: Spoke with Dr. Peetrson with [facility] cardiology, she was personally able to view imaging and repaeat EKG, discussed patient case and details, recommends NPO, she accepts her for transfer, Dr. Ortiz accepting physician. [facility] to call back with bed. 2049: EMS here for patient transfer. HPI <DAYAMI Duran - Last Filed: 10/22/20 16:56> General Mode of arrival: wheelchair . Date/Time Provider Initiated Documentation: 10/22/20 15:18 . Limitations to Documentation: no limitations . Information obtained by: patient and RN notes reviewed . History of Present Illness 84 year old F presents to the emergency department with the chief complaint of chest tightness/pressure, described as mild, with intensity rated at 3. Quality is described as aching, and is localized to the chest. Patient reports radiation to back and neck. Patient started experiencing this hour(s) (midnight) and it has been constant and now resolved. No relieving factors improve symptom(s), No exacerbating factors reported . Patient notes chest pain; denies cough, fever/chills, headaches, loss of appetite, nausea/vomiting, rash, shortness of breath and weakness. Patient did receive the following treatments prior to arrival, Aspirin Related Data Home Medications Medication Instructions Recorded Confirmed omeprazole 20 mg capsule,delayed 20 mg PO BID PRN #180 cap 09/14/20 10/22/20 release Previous Rx's Medication Instructions Recorded omeprazole 20 mg capsule,delayed 20 mg PO BID PRN #180 cap 09/14/20 release Allergies Allergy/AdvReac Type Severity Reaction Status Date / Time Penicillins Allergy Severe Anaphylaxsi Unverified 10/22/20 15:23 s General Stated Complaint: Chest Pain SHAHIDA: 2 Review of Systems <DAYAMI Duran - Last Filed: 10/22/20 16:56> Constitutional Constitutional: Reports as per HPI, Denies chills, Denies fever(s), Denies headache(s), Denies lethargy and Denies poor appetite Eyes Eyes: Denies change in vision ENT Ears, Nose, Mouth, and Throat: Denies dizziness and Denies headache(s) Cardiovascular Cardiovascular: Reports as per HPI, Reports chest pain, Reports chest pain at rest, Reports chest pain with activity, Denies edema, Denies leg edema, Reports radiating jaw, neck or arm pain, Denies dyspnea, Denies dyspnea on exertion and Denies orthopnea Respiratory Respiratory: Reports as per HPI, Denies chest congestion, Denies cough, Denies pain on inspiration, Denies pain with cough, Denies dyspnea, Denies dyspnea on exertion and Denies wheezing Gastrointestinal Gastrointestinal: Reports as per HPI, Denies abdominal pain, Denies diarrhea, Denies nausea and Denies vomiting Musculoskeletal Musculoskeletal: Reports as per HPI and Denies back pain Integumentary/Breasts Skin/Breast: Reports as per HPI and Denies rash Neurologic Neurologic: Reports as per HPI, Denies dizziness and Denies headache(s) Allergic/Immunologic Allergic/Immunologic: Denies wheezing PFSH <DAYAMI Duran - Last Filed: 10/22/20 16:56> Medical History Nuclear sclerotic cataract of left eye Nuclear sclerotic cataract of left eye 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 Surgical History Appendectomy (~3) Biopsy of breast (~2002) Status post cataract extraction and insertion of intraocular lens of left eye (01/02/19) Status post cataract extraction and insertion of intraocular lens of right eye (01/16/19) Tonsillectomy (~1945) Family History (Updated 10/12/20 @ 12:44 by Jacinto Lombardo) Mother , 70 Diabetes Essential hypertension Father , 73 Diabetes CHF (congestive heart failure) Heart disease Sister , 86 Essential hypertension Heart disease Hyperlipidemia Macular degeneration Lung cancer Brother , 63 Diabetes Essential hypertension Heart disease Hyperlipidemia Macular degeneration Lung cancer Brother , 87 Macular degeneration Lung cancer Brother Diabetes Heart disease Hyperlipidemia Macular degeneration Brother , 83 Diabetes Heart disease Stroke Macular degeneration Brother Macular degeneration Maternal Grandfather No problems noted. Paternal Grandfather No problems noted. Maternal Grandmother Diabetes Heart disease Paternal Grandmother Heart disease Son No problems noted. Social History Smoking/Tobacco Use Status: Never Smoking risk assessment performed?: Yes Alcohol Intake: current Alcohol Intake frequency: holidays/special occasions only Alcohol type: wine Drug use: Never Household members: none Housing: house Number of Children: 1 Communication Needs: None current occupation: Retired Pets and animals: No Sexually active: No Current gender identity: decline to answer What is your relationship status?: How often do you talk on the phone with friends or family?: decline to answer How often do you get together with friends or relatives?: decline to answer How often do you attend jew or yazidi services?: decline to answer Do you belong to any clubs or organized social groups?: decline to answer Panel score (0-1 are the most socially isolated patients): 0 What type of physical activity do you participate in: decline to answer Duration: decline to answer Frequency: decline to answer Kathe/Jain: No preference Special kathe needs: No Do you feel safe at home: Yes Do you feel safe in your relationship?: Yes Female Reproductive History Menstrual Menopause type: natural History History 1 Para Hx # Term Pregnancies 1 Multiple births Hx # Pregnancies Ectopic pregnancies AB induced Hx Number of Living Children AB spontaneous Exam <DAYAMI Duran Last Filed: 10/22/20 16:56> Const General: cooperative, healthy appearing, uncomfortable, no acute distress, well developed and anxious Nutritional Appearance: average body habitus and well nourished Orientation: alert, awake and oriented x3 HENMT Head: normal to inspection Ears: hearing grossly normal bilaterally Mouth: moist mucous membranes Chest Chest: normal inspection of the chest, normal palpation of entire chest wall and no crepitus Resp Effort & Inspection: normal respiratory effort, able to speak in complete sentences and no respiratory distress Auscultation: clear to auscultation bilaterally, no rales, no rhonchi and no wheezes Cardio Rate: regular rate Rhythm: regular rhythm Heart Sounds: S1 normal and S2 normal GI Inspection: normal to inspection, no edema and non-distended Palpation: soft, no hepatosplenomegaly, not firm, no guarding, not rigid and nontender Auscultation: normal bowel sounds Back/Spine/Pelvis Back: no CVA tenderness Thoracic/Lumbar Spine: thoracic and lumbar spine normal to inspection Skin General skin exam: no rashes or lesions noted Trauma: no lacerations or abrasions Neuro General: patient alert, patient awake and patient oriented x3 Cognition: normal cognition Speech: speech normal Gait: normal gait Extrem General: normal to inspection, capillary refill normal, no pedal edema, no calf tenderness, normal gait and other (2+ distal pulses in all extremities) Psych Appearance: grossly normal and well kempt Mental Status: mental status grossly normal Speech and Movement: speech and movement normal Course <DAYAMI Duran - Last Filed: 10/22/20 16:56> Vital Signs Vital signs: Vital Signs Temperature 36.3 C L 10/22/20 15:18 Pulse 64 10/22/20 15:18 Respiratory Rate 14 10/22/20 15:18 Blood Pressure 174/61 H 10/22/20 15:18 Pulse Oximetry 99 10/22/20 15:18 Temperature 36.3 C L 10/22/20 15:18 Temperature Source Temporal Artery Scan 10/22/20 15:18 Pulse 64 10/22/20 15:18 Respiratory Rate 14 10/22/20 15:18 Respiratory Effort Non-Labored 10/22/20 15:22 Blood Pressure 174/61 H 10/22/20 15:18 Blood Pressure Position Supine 10/22/20 15:18 Pulse Oximetry 99 10/22/20 15:18 Oxygen Delivery Method Room Air 10/22/20 15:18 Oxygen Flow Rate 0 10/22/20 15:18 Pain Level 3 10/22/20 15:18 Sign Out <DAYAMI Duran - Last Filed: 10/22/20 16:56> Sign Out Data: Sign Out Comment: Care transitioned to Marielena with repeat troponin and CTA pending. Patient had ASA prior to arrival, no pain currently Last updated by Suzy Carballo PA at 10/22/20 16:35
[2020-10-22 15:36] LABS: Abs Immature Grans 0.03 10^3/uL (0.0-0.06); Absolute Basophil Count 0.06 10^3/uL (0.0-0.2); Absolute Eosinophil Count 0.19 10^3/uL (0.0-0.7); Absolute Lymphocyte Count 1.96 10^3/uL (1.2-3.4); Absolute Monocyte Count 0.59 10^3/uL (0.1-0.8); Absolute Neutrophil Count 7.07 10^3/uL (1.2-6.7); Basophils % 0.6; Eosinophils % 1.9; HGB 14.3 g/dL (11.2-15.7); Immature Grans % 0.3; Lymphocytes % 19.8; MCH 28.7 pg (27.0-33.0); MCHC 31.8 % (32.0-36.0); MCV 90.2 fL (80-95); MPV 10.6 fL (8.0-11.0); Neutrophils % 71.4; Nucleated RBC 0 %; Platelet Count 271 10^3/uL (130-400); RBC 4.99 10^6/uL (3.93-5.22); RDW 14.4 % (11.7-14.6); RDW-SD 47.7 fL
[2020-10-22 15:54] LABS: ALT 23 U/L (14-59); AST 22 U/L (15-37); Albumin 3.9 g/dL (3.4-5.0); Alkaline Phosphatase 64 U/L (46-116); Anion Gap 9.3 mmol/L (3-11); BUN 16 mg/dL (7-18); Bilirubin, Total 0.4 mg/dL (0.2-1.0); CO2 25.7 mmol/L (21.0-32.0); CREATININE 0.81 mg/dL (0.55-1.02); Calcium 9.2 mg/dL (8.5-10.1); Chloride 106 mmol/L (98-107); Glucose 141 mg/dL (74-106); Potassium 4.2 mmol/L (3.5-5.1); Sodium 141 mmol/L (136-145); Total Protein 7.9 g/dL (6.4-8.2); Troponin I < 0.05 ng/mL (<0.06)
--- NOTE | 2020-10-22 16:00 | DI.CT_ITS ---
EXAM: CT THORAX CTA CLINICAL HISTORY: CP radiating into spine. TECHNIQUE: Imaging Protocol: Axial CT angiography was performed with multi-slice acquisition and mu lti-planar and/or 3D reconstructions. CONTRAST MATERIAL: Intravenous: Omnipaque 350 Contrast volume:100 cc COMPARISON: No exams were available for comparison FINDINGS: Pulmonary Arteries: No evidence of filling defect to suggest pulmonary emboli. No evidence of pulmona ry infarction or pleural effusions. No ominous pulmonary nodules. Tracheobronchial tree: No significant focal findings the trachea and mainstem bronchi. Mediastinum and Pau: Large retrocardiac hiatal hernia is noted. Thyroid nodules noted. No hilar no r mediastinal adenopathy. There is no axillary nor supraclavicular adenopathy. Pleura: No effusion or pneumothorax. Heart: Heart size is normal. There is no pericardial effusion. Caliber thoracic aorta is within nor mal limits. No evidence of obvious aortic dissection. Upper abdomen: Cysts are seen in both kidneys. The kidneys are only partially included in the field of view here. However, in the superior pole left kidney there is a solid-appearing nodule noted whi ch may be neoplastic, this measures approximately 1.8 by 2 centimetres. No adrenal masses. Multiple hypodensities are noted in the liver which are probably cysts. Bones: There are multiple calcifications seen within the spinal canal. Also possible spinal cord les ions. IMPRESSION: No evidence of pulmonary embolism. No evidence of pulmonary infarction. No pleural effusions. No in trathoracic adenopathy. No evidence of aortic dissection or pericardial effusion. Solid nodule upper pole left kidney measuring approximately 18 x 20 centimetres. Probably neoplastic . Can be further evaluated with MRI. There also cysts in the kidneys, the largest of these being in the medial left kidney and measuring approximately 1.8 centimetres. Thyroid gland nodules. Large retrocardiac hiatal hernia. Next number multiple calcifications in the spinal canal and possibly in the spinal cord. Recommend f ollow-up MRI. RADIATION DOSE DELIVERED: 517.94mGy.cm Total DLP DATA REPOSITORY: All CT scans at this facility are submitted to the National Radiology Data Registry (NRDR) Dose Index Registry (DIR) with the [employer] (ACR). RADIATION OPTIMIZATION: All CT scans at this facility use at least one of these dose optimization te chniques: automated exposure control; mA and/or kV adjustment per patient size (includes targeted exa ms where dose is matched to clinical indication); or iterative reconstruction.
--- NOTE | 2020-10-22 16:02 | DI.VRAD_ITS ---
PROCEDURE INFORMATION: Exam: XR Chest, 2 Views Exam date and time: 10/22/2020 3:19 PM Age: 84 years old Clinical indication: Chest pain; Patient HX: Pain for 16 hours, worsening, spreads from chest to back TECHNIQUE: Imaging protocol: XR of the chest Views: 2 views. COMPARISON: CR XR CHEST 2V PA LATERAL 01/05/2019 4:04 PM FINDINGS: Lungs: Unremarkable. No consolidation. Pleural space: Unremarkable. No pleural effusion. No pneumothorax. Heart/Mediastinum: Esophageal hiatal hernia. Vasculature: Aortic calcifications. 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 Other findings: Bilateral apically scarring. IMPRESSION: No acute findings. Dictated and Authenticated by: Sumi Piña MD. Ordering:DENICE Almonte MD
[2020-10-22] MEDS: Omnipaque 350 MG/ML 100 ML BTL IJ (16:28)
[2020-10-22] MEDS: Normal Saline Flush 10 ML SYR IVP (16:28)
[2020-10-22] MEDS: Normal Saline - Diluent 50 ML VIAL IV (16:28)
--- NOTE | 2020-10-22 17:22 | DI.VRAD_ITS ---
PROCEDURE INFORMATION: Exam: CT Angiography Chest With Contrast Exam date and time: 10/22/2020 4:30 PM Age: 84 years old Clinical indication: Chest pain TECHNIQUE: Imaging protocol: Computed tomographic angiography of the chest with intravenous contrast. 3D rendering (Not supervised by radiologist): MIP and/or 3D reconstructed images were created by the technologist. COMPARISON: CR XR CHEST 2V PA LATERAL 10/22/2020 3:53 PM FINDINGS: Pulmonary arteries: Good opacification of the pulmonary arteries. No filling defects are identified in the pulmonary arteries to suggest the presence of a pulmonary embolism. Aorta: Unremarkable. No aortic aneurysm. No aortic dissection. Thyroid: Thyroid goiter. Lungs: Bilateral apical pulmonary scarring. Pleural space: Unremarkable. No pneumothorax. No pleural effusion. Heart: Unremarkable. No cardiomegaly. No pericardial effusion. Mediastinal space: Very large esophageal hiatal hernia. Lymph nodes: Unremarkable. No enlarged lymph nodes. Liver: 12 mm benign cyst left hepatic lobe. 7 mm and 10 mm benign cysts right hepatic lobe. Kidneys and ureters: 2 cm heterogeneous exophytic lesion arising from the anterior upper pole of the left kidney (axial series 6, image 277). Recommend further evaluation with MRI. 2.3 cm benign cyst lateral left kidney. Stomach and bowel: Most of the stomach is above the diaphragm. Bones/joints: Old fracture proximal right humerus. The bones are demineralized. Degenerative arthritis in the visualized spine. Slight compression deformity superior endplates T3 and T4, consistent with chronic osteoporotic compression. Benign vertebral hemangioma in T3 the right. Soft tissues: Unremarkable. Other findings: Vascular calcifications. IMPRESSION: 1. No pulmonary embolism identified. 2. 2 cm indeterminate exophytic lesion arising from the anterior left kidney. MRI without and with IV contrast recommended. 3. Very large esophageal hiatal hernia. Dictated and Authenticated by: Sumi Piña MD. Ordering:DENICE Almonte MD
--- NOTE | 2020-10-22 18:30 | RT.EKG_ITS ---
APPROVED REPORT Exam: Resting ECG Patient Location: E HR:60 bpm ECG Measurements Heart Rate 60 AXIS MI 178 P -4 QRSd 88 QRS -20 QT 424 T -20 QTc 425 Conclusion Sinus rhythm...normal P axis, V-rate 60- 99 No STEMI. I have reviewed and interpreted ECG and agree with software generated interpretation.
[2020-10-22 19:24] LABS: Troponin I 0.29 ng/mL (<0.06)
--- NOTE | 2020-10-22 19:33 | NUR.NOTE ---
pt awake and alert, pain free. no change in cardiac rythm. pt awaiting dispostion at this time:
[2020-10-22] MEDS: Clopidogrel 300 MG TAB PO (19:50)
== END 2020-10-22 21:00 | disposition short-term general hospital (02) ==
PROVIDERS: Physician Assistant; Emergency Provider Registered Nurse Emergency; PCP Family Medicine
DX: I21.4 Non-ST elevation (NSTEMI) myocardial infarction (principal); Z82.49 Family history of ischemic heart disease and other diseases of the circulatory system
CPT/HCPCS: 36415; 71275; 80053; 93005; 96365; 96376; 99285; 71046; 83735; 84484; 85025; 93010; J3490

== ENCOUNTER 2020-11-14 00:36 | Outpatient (CLI) | payer MEDICARE, SELFPAY ==
--- NOTE | 2020-11-14 07:01 | DI.MRI_ITS ---
EXAM: MR ABDOMEN WO/W CLINICAL HISTORY: renal mass on thoracic study,F/U ABNL CT,R93.5,N28.89 TECHNIQUE: Multiplanar multisequence MRA of the Abdomen was performed. CONTRAST MATERIAL: IV Contrast: mL of Dotarem contrast administered. COMPARISON: CT CT THORAX CTA from 10/22/2020 FINDINGS: Examination limited due to patient motion artifact. Liver: There are cysts seen in the liver. The largest is in the left lobe and measures 1.4 cm. Pancreas: Unremarkable. Gallbladderand Bile Ducts: Unremarkable. Adrenals: Unremarkable. Kidneys: There are bilateral renal cysts. The largest is on the left kidney and measures 2.0 cm. Th ere is a complex 1.7 cm enhancing lesion at the anterior superior aspect of the left kidney best appr eciated on the postcontrast axial images. Spleen: Unremarkable. Aorta: Unremarkable. Soft Tissues: There is a large hiatal hernia. Bone: Unremarkable. Lymph Nodes: Unremarkable. Bowel: There is diverticulosis seen in the transverse, descending and sigmoid colon. IMPRESSION: 1. Examination limited due to patient motion artifact. 2. A complex 1.7 cm enhancing lesion is suggested at the anterior superior aspect of the left kidney best appreciated on the postcontrast axial images. Additional views should be considered with thinne r slices and focus on the upper pole of the left kidney. 3. Hepatic and renal cysts. 4. Large hiatal hernia. DATA REPOSITORY:
[2020-11-14] MEDS: Gadoterate meglumine 20 ML VIAL 15 ML IVP (09:39)
== END 2020-11-14 00:56 ==
PROVIDERS: PCP Family Medicine; Visit Provider Family Medicine
DX: N28.89 Other specified disorders of kidney and ureter (principal); N28.1 Cyst of kidney, acquired; K76.89 Other specified diseases of liver; K44.9 Diaphragmatic hernia without obstruction or gangrene
CPT/HCPCS: 74183

== ENCOUNTER 2020-11-17 00:13 | Outpatient (CLI) | payer MEDICARE, SELFPAY ==
--- NOTE | 2020-11-17 | DI.MRI_ITS ---
EXAM: MR ABDOMEN WO/W CLINICAL HISTORY: F/U 11/14,F/U ABNL CT,RENAL MASS TECHNIQUE: Multiplanar multisequence MRA of the Abdomen was performed. COMPARISON: CT CT THORAX CTA from 10/22/2020 MR MR ABDOMEN WO/W from 11/14/2020 FINDINGS: The examination is limited due to patient motion artifact. On the coronal T2 weighted images note is made of an exophytic 1.3 x 1.3 cm mass at the superior pole of the left kidney. The mass shows heterogeneous enhancement on the postcontrast images. Note is made of a large paraesophageal hernia. There are cysts seen in the liver. There are bilater al renal cysts. The adrenal glands are unremarkable. IMPRESSION: 1.3 cm exophytic heterogeneously enhancing mass in the superior pole of the left kidney. (Series 110 01 image 8, ( image 27). Primary diagnostic concern is for renal neoplasm. DATA REPOSITORY:
[2020-11-17] MEDS: Gadoterate meglumine 20 ML VIAL 15 ML IVP (09:16)
== END 2020-11-17 00:33 ==
PROVIDERS: PCP Family Medicine; Visit Provider Family Medicine
DX: N28.89 Other specified disorders of kidney and ureter (principal); R93.5 Abnormal findings on diagnostic imaging of other abdominal regions, including retroperitoneum
CPT/HCPCS: 74183

== ENCOUNTER → 2020-11-22 12:41 | Outpatient (BNVA) | payer MEDICARE, SELFPAY | PROVIDERS: PCP Family Medicine; Referring Provider Family Medicine; Visit Provider Internal Medicine Cardiovascular Disease | DX: I25.10 Atherosclerotic heart disease of native coronary artery without angina pectoris (principal); N28.89 Other specified disorders of kidney and ureter; E03.9 Hypothyroidism, unspecified; Z95.818 Presence of other cardiac implants and grafts | CPT/HCPCS: 99203; 99214 ==

== ENCOUNTER 2020-11-23 02:30 | Outpatient (CLI) | payer MEDICARE, SELFPAY ==
[2020-11-23 12:57] LABS: TSH (W/Ref FT4) 16.22 uIU/mL (0.36-3.74)
[2020-11-23 13:15] LABS: FREE T4 0.73 ng/dL (0.76-1.46)
== END 2020-11-23 02:50 ==
PROVIDERS: PCP Family Medicine; Visit Provider Family Medicine
DX: E03.9 Hypothyroidism, unspecified (principal); M81.0 Age-related osteoporosis without current pathological fracture
CPT/HCPCS: 36415; 84439; 84443

== ENCOUNTER 2020-12-12 01:16 | Outpatient (CLI) | payer MEDICARE, SELFPAY ==
--- NOTE | 2020-12-12 07:19 | DI.MRI_ITS ---
EXAM: MR THORACIC SPINE WO/W CLINICAL HISTORY: F/U ABNL CT OF ABD,R93.5,CALCIFICATIONS SPINAL CANAL,? SPINAL CORD. TECHNIQUE: Multiplanar multisequence MRI of the Thoracic spine was performed. CONTRAST MATERIAL: IV Contrast: 15 mL of Dotarem contrast administered. COMPARISON: CT CT THORAX CTA from 10/22/2020 FINDINGS: Bones: The vertebral body heights are well maintained. Alignment is satisfactory. Degenerative endpla te signal changes are seen in the mid and lower thoracic spine. Spinal canal: There are 7 intradural extramedullary masses within the spinal canal. The lesions are p redominantly isointense to the cord on the T1 weighted images and slightly hyperintense compared to t he cord on the T2 weighted images.Following contrast administration the lesions show homogeneous enha ncement.The largest lesion is posterior to the T6 vertebral body and measures 1.2 cm transverse by 1. 2 cm AP x 2.6 cm craniocaudad. It displaces and compresses the spinal cord to the left. Cord: The thoracic cord is normal size and signal intensity. No intrinsic cord lesion is present. Discs: No disc herniation or bulge is present. Soft tissues: Normal. IMPRESSION: Multiple intradural extramedullary enhancing masses as described above. Diagnostic consideration parker uld include but are not limited to metastatic disease, multiple meningiomas, or infectious or inflamm atory processes. DATA REPOSITORY:
[2020-12-12] MEDS: Normal Saline Flush 10 ML SYR IVP (09:27)
[2020-12-12] MEDS: Gadoterate meglumine 20 ML VIAL 15 ML IVP (09:28)
== END 2020-12-12 01:36 ==
PROVIDERS: PCP Family Medicine; Visit Provider Family Medicine
DX: R93.7 Abnormal findings on diagnostic imaging of other parts of musculoskeletal system (principal)
CPT/HCPCS: 72157

== ENCOUNTER 2021-01-23 03:38 | Outpatient (CLI) | payer MEDICARE, SELFPAY ==
[2021-01-23 13:03] LABS: TSH (W/Ref FT4) 4.49 uIU/mL (0.36-3.74)
[2021-01-23 13:22] LABS: FREE T4 1.05 ng/dL (0.76-1.46)
== END 2021-01-23 03:39 | disposition home or self-care (01) ==
LOC: LOS 03:38
PROVIDERS: PCP Family Medicine; Visit Provider Family Medicine
DX: E03.9 Hypothyroidism, unspecified (principal)
CPT/HCPCS: 36415; 84439; 84443

== ENCOUNTER → 2021-03-06 09:45 | Outpatient (BNVA) | payer MEDICARE, SELFPAY | PROVIDERS: PCP Family Medicine; Referring Provider Family Medicine; Visit Provider Internal Medicine Cardiovascular Disease | DX: I25.10 Atherosclerotic heart disease of native coronary artery without angina pectoris (principal); R93.7 Abnormal findings on diagnostic imaging of other parts of musculoskeletal system; I21.4 Non-ST elevation (NSTEMI) myocardial infarction | CPT/HCPCS: 99213 ==

== ENCOUNTER 2021-03-31 11:21 | Outpatient (CLI) | payer MEDICARE, SELFPAY ==
--- NOTE | 2021-03-31 07:39 | DI.MRI_ITS ---
Exam(s) MR THORACIC SPINE WO/W EXAM: MR THORACIC SPINE WO/W CLINICAL HISTORY: masses in thoracic spine; compare progression,G95.89,R93.7. TECHNIQUE: Multiplanar multisequence MRI of the Thoracic spine was performed. CONTRAST MATERIAL: IV Contrast: 15 mL of Dotarem contrast administered. COMPARISON: MR MR THORACIC SPINE WO/W from 12/12/2020 FINDINGS: Bones: The vertebral body heights are well maintained. Alignment is satisfactory. Degenerative endpla te signal changes are again seen throughout the thoracic spine. Spinal canal: There again seen 7 intradural extramedullary enhancing masses in the thoracic spinal ca nal. They have shown no significant change in size compared to the prior examinations. The largest is posterior to the T6 vertebral body and measures 3.0 x 1.4 cm which is unchanged when compared to t he prior examination. It does cause marked compression of the spinal cord displacing the cord to the left. It occupies approximately 90 percent of the spinal canal. This is unchanged. The other lesi ons were measured and are unchanged compared to the prior examination. Cord: The thoracic cord is normal size and signal intensity. No intrinsic cord lesion is present. Discs: No disc herniation or bulge is present. Soft tissues: Normal. IMPRESSION: Stable intradural enhancing masses in the thoracic spinal canal. The largest is posterior to the T6 vertebral body in compresses the spinal cord displacing it to the left. Complete DATA REPOSITORY:
[2021-03-31 12:21] LABS: CREATININE 0.9 mg/dL (0.55-1.02)
[2021-03-31] MEDS: Normal Saline Flush 10 ML SYR IVP (12:27)
[2021-03-31] MEDS: Gadoterate meglumine 20 ML VIAL 15 ML IVP (12:28)
[2021-03-31 14:13] LABS: TSH (W/Ref FT4) 11.81 uIU/mL (0.36-3.74)
[2021-03-31 14:29] LABS: FREE T4 1.02 ng/dL (0.76-1.46)
== END 2021-03-31 11:41 ==
PROVIDERS: PCP Family Medicine; Visit Provider Family Medicine
DX: E03.9 Hypothyroidism, unspecified (principal); R93.7 Abnormal findings on diagnostic imaging of other parts of musculoskeletal system; G95.89 Other specified diseases of spinal cord; Z01.812 Encounter for preprocedural laboratory examination
CPT/HCPCS: 72157; 82565; 84439; 84443

== ENCOUNTER 2021-04-03 08:32 | Outpatient (CLI) | payer MEDICARE, SELFPAY ==
--- NOTE | 2021-04-03 10:15 | DI.RAD_ITS ---
Exam(s) XR KNEE RT 3V AP,LAT,KEVON EXAM: XR KNEE RT 3V AP,LAT,KEVON CLINICAL HISTORY: b/l knee pain M25.569 TECHNIQUE: COMPARISON: No exams were available for comparison FINDINGS: Three views were obtained. There may be slight narrowing of the cartilaginous joint spaces of the ti bial femoral joints. There appears to be small knee joint effusion. No bony abnormality seen. IMPRESSION: RADIATION DOSE DELIVERED: Total DLP
--- NOTE | 2021-04-03 10:15 | DI.RAD_ITS ---
Exam(s) XR KNEE LT 3V AP,LAT,KEVON EXAM: XR KNEE LT 3V AP,LAT,KEVON CLINICAL HISTORY: left knee pain M25.562 TECHNIQUE: COMPARISON: No exams were available for comparison FINDINGS: Three views were obtained. There appears to be mild narrowing of the cartilaginous joint spaces of t he tibial femoral joints. No bony abnormality seen. No gross knee joint effusion seen on the latera l view. IMPRESSION: RADIATION DOSE DELIVERED: Total DLP
== END 2021-04-03 08:52 ==
PROVIDERS: PCP Family Medicine; Visit Provider Family Medicine
DX: M25.561 Pain in right knee (principal); M25.461 Effusion, right knee; M25.562 Pain in left knee
CPT/HCPCS: 73562

== ENCOUNTER 2021-05-25 15:20 | Outpatient (CLI) | payer MEDICARE, SELFPAY ==
--- NOTE | 2021-05-25 15:15 | RT.EKG_ITS ---
APPROVED REPORT Exam: Resting ECG Reason for Exam: [place] [facility] [place] Patient Location: O HR:62 bpm ECG Measurements Heart Rate 62 AXIS CO 186 P 13 QRSd 87 QRS -27 QT 432 T 38 QTc 437 Conclusion Sinus rhythm...normal P axis, V-rate 60- 99 Ventricular premature complex...V complex w/ short R-R interval Left ventricular hypertrophy...multiple voltage criteria Inferior infarct, old...Q >35mS, II III aVF
[2021-05-25 21:23] LABS: HCT 44.3 % (36.0-46.0); HGB 14.1 g/dL (11.2-15.7); MCH 28.1 pg (27.0-33.0); MCHC 31.8 % (32.0-36.0); MCV 88.4 fL (80-95); MPV 11.5 fL (8.0-11.0); Platelet Count 256 10^3/uL (130-400); RBC 5.01 10^6/uL (3.93-5.22); RDW 14.4 % (11.7-14.6); RDW-SD 46.7 fL; WBC 8.29 10^3/uL (4.4-10.8)
[2021-05-25 21:37] LABS: ALT 25 U/L (14-59); AST 16 U/L (15-37); Albumin 3.9 g/dL (3.4-5.0); Alkaline Phosphatase 71 U/L (46-116); Anion Gap 12.2 mmol/L (3-11); BUN 17 mg/dL (7-18); Bilirubin, Total 0.5 mg/dL (0.2-1.0); CO2 23.8 mmol/L (21.0-32.0); CREATININE 0.9 mg/dL (0.55-1.02); Calcium 9.2 mg/dL (8.5-10.1); Chloride 108 mmol/L (98-107); Glucose 89 mg/dL (74-106); Potassium 4.2 mmol/L (3.5-5.1); Sodium 144 mmol/L (136-145); TSH (W/Ref FT4) 7.93 uIU/mL (0.36-3.74); Total Protein 7.2 g/dL (6.4-8.2)
[2021-05-25 22:00] LABS: FREE T4 0.98 ng/dL (0.76-1.46)
== END 2021-05-25 15:21 | disposition home or self-care (01) ==
LOC: DI.CM 15:21
PROVIDERS: PCP Family Medicine; Visit Provider Family Medicine
DX: M81.0 Age-related osteoporosis without current pathological fracture (principal); Z01.818 Encounter for other preprocedural examination; I49.3 Ventricular premature depolarization
CPT/HCPCS: 80053; 85027; 93010; 84439; 84443

== ENCOUNTER → 2021-07-07 12:23 | Outpatient (BNVA) | payer MEDICARE, SELFPAY | PROVIDERS: PCP Family Medicine; Referring Provider Family Medicine; Visit Provider Internal Medicine Cardiovascular Disease | DX: I25.10 Atherosclerotic heart disease of native coronary artery without angina pectoris (principal); Z98.890 Other specified postprocedural states | CPT/HCPCS: 99214; 99213 ==

== ENCOUNTER → 2022-03-05 10:44 | Outpatient (BNVA) | payer MEDICARE, SELFPAY | PROVIDERS: PCP Family Medicine; Visit Provider Internal Medicine Cardiovascular Disease | DX: I10 Essential (primary) hypertension (principal); I25.10 Atherosclerotic heart disease of native coronary artery without angina pectoris | CPT/HCPCS: 99213 ==

== ENCOUNTER 2022-03-13 02:22 | Outpatient (CLI) | payer MEDICARE, SELFPAY ==
[2022-03-13 13:37] LABS: ALT 24 U/L (14-59); AST 15 U/L (15-37); Albumin 4.1 g/dL (3.4-5.0); Alkaline Phosphatase 76 U/L (46-116); Anion Gap 6.9 mmol/L (3-11); BUN 16 mg/dL (7-18); Bilirubin, Total 0.6 mg/dL (0.2-1.0); CO2 28.1 mmol/L (21.0-32.0); Calcium 8.8 mg/dL (8.5-10.1); Chloride 105 mmol/L (98-107); Estimated GFR 52.82 (mL/min/1.73m2); Glucose 138 mg/dL (74-106); Potassium 4.3 mmol/L (3.5-5.1); Sodium 140 mmol/L (136-145); TSH (W/Ref FT4) 59.66 uIU/mL (0.36-3.74); Total Protein 7.3 g/dL (6.4-8.2)
[2022-03-13 13:55] LABS: FREE T4 0.37 ng/dL (0.76-1.46)
== END 2022-03-13 02:23 | disposition home or self-care (01) ==
LOC: LBO 02:22
PROVIDERS: PCP Family Medicine; Visit Provider Family Medicine
DX: I10 Essential (primary) hypertension (principal); E03.9 Hypothyroidism, unspecified
CPT/HCPCS: 36415; 80053; 84439; 84443

== ENCOUNTER 2022-05-15 10:32 | Outpatient (CLI) | payer MEDICARE, SELFPAY ==
[2022-05-15 13:41] LABS: TSH (W/Ref FT4) 2.38 uIU/mL (0.36-3.74)
== END 2022-05-15 10:33 | disposition home or self-care (01) ==
LOC: LOS 10:33
PROVIDERS: Visit Provider Family Medicine
DX: E03.9 Hypothyroidism, unspecified (principal); R73.03 Prediabetes
CPT/HCPCS: 36415; 84443

== ENCOUNTER 2023-03-04 10:42 | Outpatient (CLI) | payer MEDICARE, SELFPAY ==
--- NOTE | 2023-03-04 10:45 | RT.EKG_ITS ---
APPROVED REPORT Exam: Resting ECG Reason for Exam: CAD Patient Location: O HR:59 bpm ECG Measurements Heart Rate 59 AXIS FL 175 P 3 QRSd 94 QRS -23 QT 437 T 16 QTc 433 Conclusion Sinus rhythm...normal P axis, V-rate 50- 99 Voltage for LVH
== END 2023-03-04 10:43 | disposition home or self-care (01) ==
LOC: DI.CARD 10:47
PROVIDERS: PCP Family Medicine; Visit Provider Internal Medicine Cardiovascular Disease
DX: I42.2 Other hypertrophic cardiomyopathy (principal)
CPT/HCPCS: 93010

== ENCOUNTER → 2023-03-04 10:42 | Outpatient (BNVA) | payer MEDICARE, SELFPAY | PROVIDERS: PCP Family Medicine; Referring Provider Family Medicine; Visit Provider Internal Medicine Cardiovascular Disease | DX: I10 Essential (primary) hypertension (principal); I25.10 Atherosclerotic heart disease of native coronary artery without angina pectoris | CPT/HCPCS: 99213 ==

== ENCOUNTER 2023-07-26 03:31 | Outpatient (CLI) | payer MEDICARE, SELFPAY ==
[2023-07-26 13:33] LABS: ALT 24 U/L (14-59); AST 15 U/L (15-37); Albumin 3.6 g/dL (3.4-5.0); Alkaline Phosphatase 97 U/L (46-116); Anion Gap 4.8 mmol/L (3-11); BUN 15 mg/dL (7-18); Bilirubin, Total 0.5 mg/dL (0.2-1.0); CO2 31.2 mmol/L (21.0-32.0); CREATININE 0.8 mg/dL (0.55-1.02); Calcium 9.1 mg/dL (8.5-10.1); Calculated LDL 97 mg/dL (<100); Chloride 106 mmol/L (98-107); Cholesterol 167 mg/dL (<200); Estimated GFR 72.16 (mL/min/1.73m2); Glucose 126 mg/dL (74-106); HDL Cholesterol 48 mg/dL (40-60); Potassium 5.1 mmol/L (3.5-5.1); Sodium 142 mmol/L (136-145); Total Protein 7.3 g/dL (6.4-8.2); Triglyceride 112 mg/dL (<150); Vitamin B12 316 pg/mL (193-986)
[2023-07-26 13:50] LABS: FREE T4 1.15 ng/dL (0.76-1.46)
== END 2023-07-26 03:32 | disposition home or self-care (01) ==
LOC: LOS 03:36
PROVIDERS: PCP Family Medicine; Visit Provider Family Medicine
DX: E03.9 Hypothyroidism, unspecified (principal); I10 Essential (primary) hypertension; I25.10 Atherosclerotic heart disease of native coronary artery without angina pectoris; K44.9 Diaphragmatic hernia without obstruction or gangrene; Z79.899 Other long term (current) drug therapy
CPT/HCPCS: 36415; 80053; 80061; 82607; 84439; 84443

== ENCOUNTER 2024-01-27 11:40 | Outpatient (CLI) | payer MEDICARE, SELFPAY ==
[2024-01-27 13:12] LABS: Hemoglobin A1C 7.3 % (<5.7)
[2024-01-27 13:40] LABS: ALT 22 U/L (14-59); AST 16 U/L (15-37); Albumin 3.7 g/dL (3.4-5.0); Alkaline Phosphatase 89 U/L (46-116); Anion Gap 8.5 mmol/L (3-11); BUN 15 mg/dL (7-18); Bilirubin, Total 0.5 mg/dL (0.2-1.0); CO2 27.5 mmol/L (21.0-32.0); CREATININE 0.8 mg/dL (0.55-1.02); Calcium 9.3 mg/dL (8.5-10.1); Calculated LDL 118 mg/dL (<100); Chloride 105 mmol/L (98-107); Cholesterol 191 mg/dL (<200); Estimated GFR 71.71 (mL/min/1.73m2); Glucose 148 mg/dL (74-106); HDL Cholesterol 53 mg/dL (40-60); Potassium 4.8 mmol/L (3.5-5.1); Sodium 141 mmol/L (136-145); TSH (W/Ref FT4) 10.45 uIU/mL (0.36-3.74); Total Protein 7.4 g/dL (6.4-8.2); Triglyceride 102 mg/dL (<150); Vitamin B12 273 pg/mL (193-986)
[2024-01-27 13:57] LABS: FREE T4 1.06 ng/dL (0.76-1.46)
== END 2024-01-27 11:41 | disposition home or self-care (01) ==
LOC: LOS 11:40
PROVIDERS: PCP Family Medicine; Referring Provider Family Medicine; Visit Provider Family Medicine
DX: I10 Essential (primary) hypertension (principal); K29.60 Other gastritis without bleeding; E03.9 Hypothyroidism, unspecified; E11.9 Type 2 diabetes mellitus without complications; Z79.899 Other long term (current) drug therapy
CPT/HCPCS: 36415; 80053; 80061; 82607; 83036; 84439; 84443

== ENCOUNTER → 2024-03-09 10:47 | Outpatient (BNVA) | payer MEDICARE, SELFPAY | PROVIDERS: PCP Family Medicine; Visit Provider Internal Medicine Cardiovascular Disease | DX: I25.2 Old myocardial infarction (principal); Z95.828 Presence of other vascular implants and grafts; I25.10 Atherosclerotic heart disease of native coronary artery without angina pectoris; I10 Essential (primary) hypertension | CPT/HCPCS: 99213 ==

== ENCOUNTER 2024-08-18 14:19 | Outpatient (CLI) | payer MEDICARE, SELFPAY ==
--- NOTE | 2024-08-18 13:52 | DI.RAD_ITS ---
Exam(s) XR KNEE RT 3V AP,LAT,KEVON EXAM: XR KNEE RT 3V AP,LAT,KEVON CLINICAL HISTORY: RIGHT KNEE PAIN. TECHNIQUE: 2D digital imaging was performed of the right knee. Three views obtained. AP, lateral an d PA tunnel views were obtained. COMPARISON: CR XR KNEE RT 3V AP,LAT,KEVON from 04/03/2021 FINDINGS: BONES: No acute fracture is present. No bony destructive lesion is seen. There is an enthesophyte at the superior patella. JOINTS: The knee is normally aligned. There is mild narrowing and spurring in the medial femoral tibi al joint. Small osteophyte is seen at the posterior patella. There is a small joint effusion. SOFT TISSUE: Normal. IMPRESSION: Mild arthrosis of the right knee. Small joint effusion. DATA REPOSITORY: RADIATION DOSE DELIVERED:
== END 2024-08-18 14:20 | disposition home or self-care (01) ==
LOC: DIORS 14:19
PROVIDERS: PCP Family Medicine; Referring Provider Family Medicine; Visit Provider Physician Assistant
DX: M17.11 Unilateral primary osteoarthritis, right knee
CPT/HCPCS: 20610; 73562; 99213; J1010

== ENCOUNTER 2025-01-04 02:35 | Outpatient (CLI) | payer MEDICARE, SELFPAY ==
[2025-01-04 13:06] LABS: COMMENT (LAB VIEW ONLY) 103.24 mg/dL; Microalb ug/mg Crea 12.7 ug/mg Cr
[2025-01-04 13:21] LABS: ALT 21 U/L (14-59); AST 12 U/L (15-37); Albumin 3.4 g/dL (3.4-5.0); Alkaline Phosphatase 95 U/L (46-116); BUN 14 mg/dL (7-18); Bilirubin, Total 0.44 mg/dL (0.2-1.0); CREATININE 0.9 mg/dL (0.55-1.02); Calcium 8.9 mg/dL (8.5-10.1); Calculated LDL 100 mg/dL (<100); Chloride 106 mmol/L (98-107); Cholesterol 171 mg/dL (<200); Estimated GFR 61.87 (mL/min/1.73m2); Glucose 170 mg/dL (74-106); HDL Cholesterol 53 mg/dL (40-60); Potassium 4.3 mmol/L (3.5-5.1); Sodium 144 mmol/L (136-145); Total Protein 7.1 g/dL (6.4-8.2); Triglyceride 91 mg/dL (<150); Vitamin B12 339 pg/mL (193-986)
[2025-01-04 14:07] LABS: Hemoglobin A1C 7.3 % (<5.7)
[2025-01-04 14:13] LABS: FREE T4 1.23 ng/dL (0.76-1.46)
== END 2025-01-04 02:36 | disposition home or self-care (01) ==
LOC: LOS 02:35
PROVIDERS: PCP Family Medicine; Referring Provider Family Medicine; Visit Provider Family Medicine
DX: I10 Essential (primary) hypertension (principal); R79.89 Other specified abnormal findings of blood chemistry; E03.9 Hypothyroidism, unspecified; E11.9 Type 2 diabetes mellitus without complications
CPT/HCPCS: 36415; 80053; 80061; 82043; 82570; 82607; 83036; 84439; 84443

== ENCOUNTER 2025-03-24 07:56 | Outpatient (CLI) | payer MEDICARE, SELFPAY ==
--- NOTE | 2025-03-24 07:45 | RT.EKG_ITS ---
APPROVED REPORT Exam: Resting ECG Reason for Exam: ASCVD Patient Location: O HR:54 bpm ECG Measurements Heart Rate 54 AXIS HI 187 P 5 QRSd 94 QRS -25 QT 439 T 38 QTc 416 Conclusion Sinus rhythm...normal P axis, V-rate 50- 99 Left ventricular hypertrophy...multiple voltage criteria Inferior infarct, old...Q >35mS, II III aVF
== END 2025-03-24 07:57 | disposition home or self-care (01) ==
LOC: DI.CARD 07:56
PROVIDERS: PCP Family Medicine; Visit Provider Registered Nurse
DX: I25.10 Atherosclerotic heart disease of native coronary artery without angina pectoris (principal); I51.7 Cardiomegaly
CPT/HCPCS: 93010

== ENCOUNTER → 2025-03-24 13:29 | Outpatient (BNVA) | payer MEDICARE, SELFPAY | PROVIDERS: PCP Family Medicine; Visit Provider Registered Nurse | DX: I25.10 Atherosclerotic heart disease of native coronary artery without angina pectoris (principal); I10 Essential (primary) hypertension | CPT/HCPCS: 93005; 99214 ==